=== PATIENT | male | born 1945 | race Caucasian/White ===

== ENCOUNTER → 2016-12-03 | Outpatient (CLI) | payer MEDICARE, MEDICAID ==
[~2016-12-03] MED LIST: ACET-1953 PO; ASPI-1093 PO; ATOR40TA28 PO; CARV6.2579 PO; CITA20TA17 PO; DOCU250C91 PO; DUTA.5 PO; FURO20 PO; HYDR-4031 PO; ISOS60TA62 PO; LISI10TA7 PO; METF1000 PO; NITR.3 SL; OMEG-61 PO; OMEP20CA4 PO; PHEN-853 PO; POTA8TAB4 PO; ROPI0.5T5 PO; ROSU5TAB3 PO; SITA100 PO; TAMS0.4C32 PO; TRAM50TA4 PO; TRAZ-144 PO; VITAD1000 PO; [UNRECOGNIZED DRUG - OTHER] PO
== END | disposition home or self-care (01) ==
LOC: RADPV 11:36
PROVIDERS: ATTEND Family Medicine
DX: M50.322 Other cervical disc degeneration at C5-C6 level (principal); M50.323 Other cervical disc degeneration at C6-C7 level; M47.892 Other spondylosis, cervical region; M12.88 Other specific arthropathies, not elsewhere classified, other specified site; M53.82 Other specified dorsopathies, cervical region
CPT/HCPCS: 72040

== ENCOUNTER → 2017-01-26 | Outpatient (CLI) | payer MEDICARE, MEDICAID | END | disposition home or self-care (01) | LOC: RADPV 14:55 | PROVIDERS: ATTEND Internal Medicine Critical Care Medicine | DX: I50.9 Heart failure, unspecified (principal); J98.11 Atelectasis; J98.4 Other disorders of lung; I70.0 Atherosclerosis of aorta | CPT/HCPCS: 71020 ==

== ENCOUNTER → 2017-02-18 | Outpatient (CLI) | payer MEDICARE, MEDICAID | END | disposition home or self-care (01) | LOC: RADPV 11:14 | PROVIDERS: ATTEND Family Medicine | DX: M47.815 Spondylosis without myelopathy or radiculopathy, thoracolumbar region (principal); M47.817 Spondylosis without myelopathy or radiculopathy, lumbosacral region; M43.17 Spondylolisthesis, lumbosacral region; M40.47 Postural lordosis, lumbosacral region; M51.36 Other intervertebral disc degeneration, lumbar region; M81.0 Age-related osteoporosis without current pathological fracture; I70.0 Atherosclerosis of aorta; M85.88 Other specified disorders of bone density and structure, other site; M47.812 Spondylosis without myelopathy or radiculopathy, cervical region; M50.323 Other cervical disc degeneration at C6-C7 level | CPT/HCPCS: 72040; 72100 ==

== ENCOUNTER 2017-07-23 18:26 | Inpatient (IN) | payer MEDICARE, MEDICAID ==
[~2017-07-23] VITALS: Ht 167.6 cm; Wt 143.5 kg
[~2017-07-23 18:26] MED LIST changes: -ASPI-1093 PO; +ASPI-1182 PO; -PHEN-853 PO; +PHEN-933 PO; +ROSU5TAB PO; -ROSU5TAB3 PO
[2017-07-23 18:42] LABS: GLUCOSE,POINT OF CARE 137 MG/DL (70-110)
[2017-07-23 19:11] LABS: BASOPHILS % (AUTO) 0.3 % (0.0-2.0); EOSINOPHILS % (AUTO) 2.3 % (1.0-6.0); HEMATOCRIT 41.8 % (41-53); LYMPHOCYTES # (AUTO) 2.6 K/uL (1.0-4.8); LYMPHOCYTES % (AUTO) 27.8 % (22.0-44.0); MEAN CORPUSCULAR HEMOGLOBIN 28.4 pg (26.0-34.0); MEAN CORPUSCULAR HGB CONC 33.4 G/dL (31.0-37.0); MEAN CORPUSCULAR VOLUME 85 fL (80-100); MONOCYTES # (AUTO) 0.8 K/uL (0.1-1.0); MONOCYTES % (AUTO) 8.2 % (2.0-9.0); NEUTROPHILS # (AUTO) 5.8 K/uL (1.8-7.7); NEUTROPHILS % (AUTO) 61.4 % (40.0-70.0); PLATELET COUNT (AUTO) 328 K/uL (150-450); RED BLOOD CELL COUNT(AUTO) 4.92 MIL/uL (4.50-5.90); RED CELL DISTRIBUTION WIDTH 14.8 % (11.5-14.5); WHITE BLOOD COUNT (AUTO) 9.5 K/uL (4.5-11.0)
[2017-07-23 19:19] LABS: ANION GAP 5 mmol/L (8-16); CALCIUM, TOTAL 9.3 mg/dL (8.8-10.5); CARBON DIOXIDE 29 mmol/L (22-29); CHLORIDE 100 mmol/L (98-107); CREATININE 0.81 mg/dL (0.60-1.30); GLOMERULAR FILTR. RATE CALC > 60 mL/min (>60); POTASSIUM 4.4 mmol/L (3.5-5.1); PROTHROMBIN TIME 10.7 SEC (9.4-11.6); SODIUM SERUM 134 mmol/L (136-145); UREA NITROGEN, BLOOD 18 mg/dL (7-18)
[2017-07-23 19:26] LABS: ALANINE AMINOTRANSFERASE 84 U/L (12-78); ALBUMIN 3.6 g/dL (3.4-5.0); ASPARTATE AMINOTRANSFERASE 35 U/L (15-37); BILIRUBIN,TOTAL 0.2 mg/dL (0.1-1.0); TOTAL PROTEIN, SERUM 7.4 g/dL (6.4-8.2)
[2017-07-23] MEDS ORDERED: ACETAMINOPHEN 325 MG TABLET PO PRN (20:30)
[2017-07-23] MEDS ORDERED: 0.9% SODIUM CHLORIDE 10 ML SYRINGE IVP PRN (20:30)
[2017-07-23] MEDS ORDERED: ONDANSETRON HCL 4 MG/2 ML VIAL IVP PRN (20:30)
[2017-07-23 21:36] VITALS: BP 101/58
[2017-07-23] MEDS ORDERED: NITROGLYCERIN 0.3 MG SUBLINGUAL TABLET #100 SL PRN (22:15)
[2017-07-23] MEDS ORDERED: HydrOXYzine PAMOATE 25 MG CAPSULE PO PRN (22:15)
[2017-07-23] MEDS ORDERED: ROPINIRole HCL 0.25 MG TABLET PO SCH (22:15)
[2017-07-23] MEDS ORDERED: ACETAMINOPHEN 500 MG TABLET PO PRN (22:15)
[2017-07-23] MEDS: TraZODone HCL 50 MG TABLET PO SCH (22:42)
[2017-07-23 23:26] LABS: HEMATOCRIT 39.3 % (41-53)
[2017-07-23 23:39] VITALS: BP 115/56
[2017-07-24] MEDS: TraMADol HCL 50 MG TABLET PO PRN ×5 (02:15→23:49)
[2017-07-24] MEDS ORDERED: -PHARMACY VACCINE NOTE- MISC ONE ×2 (02:45)
[2017-07-24 04:20] VITALS: BP 104/57
[2017-07-24 05:44] LABS: BASOPHILS % (AUTO) 0.6 % (0.0-2.0); HEMATOCRIT 40.6 % (41-53); HEMOGLOBIN 13.2 g/dL (13.5-17.5); LYMPHOCYTES # (AUTO) 2.7 K/uL (1.0-4.8); LYMPHOCYTES % (AUTO) 25.7 % (22.0-44.0); MEAN CORPUSCULAR HEMOGLOBIN 28.2 pg (26.0-34.0); MEAN CORPUSCULAR HGB CONC 32.6 G/dL (31.0-37.0); MEAN CORPUSCULAR VOLUME 87 fL (80-100); MONOCYTES # (AUTO) 0.8 K/uL (0.1-1.0); MONOCYTES % (AUTO) 7.7 % (2.0-9.0); NEUTROPHILS # (AUTO) 6.7 K/uL (1.8-7.7); PLATELET COUNT (AUTO) 321 K/uL (150-450); RED BLOOD CELL COUNT(AUTO) 4.69 MIL/uL (4.50-5.90); RED CELL DISTRIBUTION WIDTH 15.1 % (11.5-14.5); WHITE BLOOD COUNT (AUTO) 10.5 K/uL (4.5-11.0)
[2017-07-24 06:01] LABS: ALANINE AMINOTRANSFERASE 70 U/L (12-78); ALBUMIN 3.4 g/dL (3.4-5.0); ANION GAP 5 mmol/L (8-16); ASPARTATE AMINOTRANSFERASE 25 U/L (15-37); BILIRUBIN,TOTAL 0.2 mg/dL (0.1-1.0); CALCIUM, TOTAL 9.2 mg/dL (8.8-10.5); CARBON DIOXIDE 29 mmol/L (22-29); CHLORIDE 100 mmol/L (98-107); CREATININE 0.93 mg/dL (0.60-1.30); GLOMERULAR FILTR. RATE CALC > 60 mL/min (>60); SODIUM SERUM 134 mmol/L (136-145); TOTAL PROTEIN, SERUM 7.1 g/dL (6.4-8.2); UREA NITROGEN, BLOOD 21 mg/dL (7-18)
[2017-07-24 07:08] LABS: GLUCOSE,POINT OF CARE 132 MG/DL (70-110)
[2017-07-24 07:33] VITALS: BP 112/51
[2017-07-24] MEDS: POTASSIUM CHLORIDE 8 MEQ ER TABLET PO SCH (08:56)
[2017-07-24] MEDS: SitaGLIPtin PHOSPHATE 100 MG TABLET PO SCH (08:56)
[2017-07-24] MEDS: MetFORMIN HCL 500 MG TABLET PO SCH ×2 (08:56→17:26)
[2017-07-24] MEDS: DOCUSATE SODIUM 250 MG CAPSULE PO SCH (08:56)
[2017-07-24] MEDS: DUTASTERIDE 0.5 MG CAPSULE PO SCH (08:56)
[2017-07-24] MEDS: CITALOPRAM HYDROBROMIDE 20 MG TABLET PO SCH (08:56)
[2017-07-24] MEDS: PHENAZOPYRIDINE HCL 100 MG TABLET PO SCH ×2 (08:56→20:01)
[2017-07-24] MEDS: LISINOPRIL 20 MG TABLET PO SCH (08:57)
[2017-07-24] MEDS: ASPIRIN 81 MG EC TABLET PO SCH (08:57)
[2017-07-24] MEDS: CARVEDILOL 25 MG TABLET PO SCH ×2 (08:57→20:01)
[2017-07-24] MEDS: CHOLECALCIFEROL (VIT D3) 1,000 UNITS TABLET PO SCH (08:57)
[2017-07-24] MEDS: TAMSULOSIN HCL 0.4 MG CAPSULE PO SCH (08:57)
[2017-07-24] MEDS: OMEPRAZOLE 20 MG CAPSULE PO SCH (08:57)
[2017-07-24] MEDS: FUROSEMIDE 40 MG TABLET PO SCH (08:57)
[2017-07-24] MEDS: ISOSORBIDE MONONITRATE 60 MG ER TABLET PO SCH (08:57)
[2017-07-24] MEDS: OMEGA-3/DHA/EPA/FISH OIL 500 MG CAPSULE PO SCH (08:59)
[2017-07-24] MEDS ORDERED: ATORVASTATIN CALCIUM 40 MG TABLET PO SCH ×2 (09:00)
[2017-07-24] MEDS: VITAMIN B COMPLEX ER TABLET PO SCH (10:51)
[2017-07-24] MEDS ORDERED: LISI-662 PO (10:51)
[2017-07-24] MEDS ORDERED: FURO40 PO (10:51)
[2017-07-24] MEDS ORDERED: CARV25 PO (10:51)
[2017-07-24] MEDS ORDERED: ROSU5TAB PO (10:55)
[2017-07-24 11:00] VITALS: BP 134/68
[2017-07-24 12:33] LABS: GLUCOSE,POINT OF CARE 213 MG/DL (70-110)
[2017-07-24 15:28] VITALS: BP 117/53
[2017-07-24] MEDS ORDERED: DEXTROSE 50%-WATER 25 GM/50 ML SYRINGE IVP PRN (18:00)
[2017-07-24 18:08] LABS: GLUCOSE,POINT OF CARE 177 MG/DL (70-110)
[2017-07-24] MEDS: INSULIN ASPART 100 UNITS/ML SQ PRN ×2 (18:59→20:07)
[2017-07-24 19:10] VITALS: BP 132/68
[2017-07-24] MEDS: TraZODone HCL 50 MG TABLET PO SCH (20:01)
[2017-07-24 20:38] LABS: GLUCOSE COMMENT 1 Received Meds; GLUCOSE,POINT OF CARE 220 MG/DL (70-110)
[2017-07-24] MEDS ORDERED: ROSUVASTATIN CALCIUM 10 MG TABLET PO SCH (21:00)
[2017-07-24] MEDS ORDERED: TraZODone HCL 50 MG TABLET PO SCH (21:00)
[2017-07-24 23:25] VITALS: BP 120/60
[2017-07-25 04:00] VITALS: BP 139/59
[2017-07-25] MEDS: INSULIN ASPART 100 UNITS/ML SQ PRN (05:39)
[2017-07-25 06:18] LABS: GLUCOSE COMMENT 1 Received Meds; GLUCOSE,POINT OF CARE 152 MG/DL (70-110)
[2017-07-25 07:57] VITALS: BP 157/87
[2017-07-25] MEDS: FUROSEMIDE 40 MG TABLET PO SCH (08:52)
[2017-07-25] MEDS: CARVEDILOL 25 MG TABLET PO SCH (08:52)
[2017-07-25] MEDS: TraMADol HCL 50 MG TABLET PO PRN (08:53)
[2017-07-25] MEDS: ISOSORBIDE MONONITRATE 60 MG ER TABLET PO SCH (08:53)
[2017-07-25] MEDS: CHOLECALCIFEROL (VIT D3) 1,000 UNITS TABLET PO SCH (08:53)
[2017-07-25] MEDS: DOCUSATE SODIUM 250 MG CAPSULE PO SCH (08:53)
[2017-07-25] MEDS: LISINOPRIL 20 MG TABLET PO SCH (08:53)
[2017-07-25] MEDS: ASPIRIN 81 MG EC TABLET PO SCH (08:53)
[2017-07-25] MEDS: OMEPRAZOLE 20 MG CAPSULE PO SCH (08:53)
[2017-07-25] MEDS: POTASSIUM CHLORIDE 8 MEQ ER TABLET PO SCH (08:53)
[2017-07-25] MEDS: OMEGA-3/DHA/EPA/FISH OIL 500 MG CAPSULE PO SCH (08:55)
[2017-07-25] MEDS: VITAMIN B COMPLEX ER TABLET PO SCH (08:55)
[2017-07-25] MEDS: DUTASTERIDE 0.5 MG CAPSULE PO SCH (08:55)
[2017-07-25] MEDS: CITALOPRAM HYDROBROMIDE 20 MG TABLET PO SCH (08:56)
[2017-07-25] MEDS: PHENAZOPYRIDINE HCL 100 MG TABLET PO SCH (08:56)
[2017-07-25] MEDS: SitaGLIPtin PHOSPHATE 100 MG TABLET PO SCH (08:56)
[2017-07-25] MEDS: TAMSULOSIN HCL 0.4 MG CAPSULE PO SCH (09:04)
[2017-07-25] MEDS: MetFORMIN HCL 500 MG TABLET PO SCH (09:04)
== END 2017-07-25 10:44 | disposition home or self-care (01) | DRG 378 ==
LOC: EMS 18:28 → 6N 20:46
PROVIDERS: ADMIT Internal Medicine; ATTEND Internal Medicine
DX: K92.2 Gastrointestinal hemorrhage, unspecified (principal); Z68.43 Body mass index [BMI] 50.0-59.9, adult; E11.9 Type 2 diabetes mellitus without complications; F32.9 Major depressive disorder, single episode, unspecified; E78.00 Pure hypercholesterolemia, unspecified; N40.0 Benign prostatic hyperplasia without lower urinary tract symptoms; I10 Essential (primary) hypertension; K21.9 Gastro-esophageal reflux disease without esophagitis; Z82.49 Family history of ischemic heart disease and other diseases of the circulatory system; Z90.49 Acquired absence of other specified parts of digestive tract; E66.9 Obesity, unspecified
CPT/HCPCS: 82271; 82962; 83036; 83735; 85014; 85018; 86850; 86900; 86901; 87081; 99285

== ENCOUNTER → 2017-09-02 | Outpatient (CLI) | payer MEDICARE, MEDICAID ==
[~2017-09-02] MED LIST changes: +CARV25 PO; -CARV6.2579 PO; -FURO20 PO; +FURO40 PO; +LISI-662 PO; -LISI10TA7 PO
== END | disposition home or self-care (01) ==
LOC: RADPV 12:16
PROVIDERS: ATTEND Family Medicine
DX: M19.011 Primary osteoarthritis, right shoulder (principal)

== ENCOUNTER 2018-02-09 07:03 | Day surgery (SDC) | payer MEDICARE, MEDICAID ==
[~2018-02-09] VITALS: Ht 165.1 cm; Wt 140.9 kg
[~2018-02-09 07:03] MED LIST changes: +DICLOFENAC SODIUM 0.1% 2.5 ML OPHTHALMIC SOLUTION ONE; +MOXIFLOXACIN HCL 0.5% 3 ML OPHTHALMIC SOLUTION ONE; +RINGERS SOLUTION,LACTATED 500 ML IV ONE
[2018-02-09] MEDS ORDERED: PHENYLEPHRINE HCL 2.5% 2 ML OPHTHALMIC SOLUTION ONE (07:04)
[2018-02-09] MEDS ORDERED: LIDOCAINE HCL/PF 1% 2 ML VIAL IM ONE (07:04)
[2018-02-09] MEDS ORDERED: TROPICAMIDE 1% 2 ML OPHTHALMIC SOLUTION ONE (07:04)
[2018-02-09] MEDS ORDERED: TETRACAINE HCL VISCOUS 0.5% 5 ML OPHTHALMIC SOLUTION OD ONE (07:04)
[2018-02-09] MEDS ORDERED: HYALURONATE SODIUM 12 MG/ML 0.8 ML SYRINGE IO ONE (07:04)
[2018-02-09] MEDS ORDERED: HYALURONATE SOD/CHONDROITIN SOD 0.5 ML VIAL IO ONE (07:04)
[2018-02-09] MEDS ORDERED: FentaNYL CITRATE-PF 100 MCG/2 ML VIAL IVP ONE (07:04)
[2018-02-09] MEDS ORDERED: POVIDONE-IODINE 10% 15 ML SOLUTION UD TP ONE (07:04)
[2018-02-09] MEDS ORDERED: MIDAZOLAM HCL 2 MG/2 ML VIAL IVP ONE (07:04)
[2018-02-09] MEDS ORDERED: DEXAMETHASONE SOD PHOS 4 MG/ML VIAL IVP ONE (07:04)
[2018-02-09] MEDS ORDERED: 0.9% SODIUM CHLORIDE 10 ML SYRINGE IVP PRN (07:30)
[2018-02-09] MEDS ORDERED: RINGERS SOLUTION,LACTATED 500 ML IV ONE (07:30)
[2018-02-09] MEDS ORDERED: DICLOFENAC SODIUM 0.1% 2.5 ML OPHTHALMIC SOLUTION OS ONE (07:30)
[2018-02-09] MEDS ORDERED: MOXIFLOXACIN HCL 0.5% 3 ML OPHTHALMIC SOLUTION OS ONE (07:30)
[2018-02-09 07:58] LABS: GLUCOMETER DEV NAME(LOC) SDS 5; GLUCOSE,POINT OF CARE 144 MG/DL (70-110)
[2018-02-09] MEDS: PHENYLEPHRINE HCL 2.5% 2 ML OPHTHALMIC SOLUTION OS SCH ×2 (07:59→08:04)
[2018-02-09] MEDS: TROPICAMIDE 1% 2 ML OPHTHALMIC SOLUTION OS SCH ×2 (07:59→08:04)
[2018-02-09] MEDS ORDERED: HYDROmorphone 2 MG/ML SYRINGE IVP ONE (09:00)
[2018-02-09] MEDS ORDERED: HYDROmorphone 2 MG/ML SYRINGE ONE (09:02)
== END 2018-02-09 10:50 | disposition home or self-care (01) ==
LOC: SURGERY 07:03
PROVIDERS: ATTEND Specialist
DX: E11.36 Type 2 diabetes mellitus with diabetic cataract (principal); H25.012 Cortical age-related cataract, left eye; E78.00 Pure hypercholesterolemia, unspecified; M19.90 Unspecified osteoarthritis, unspecified site; F32.9 Major depressive disorder, single episode, unspecified; E66.9 Obesity, unspecified; G47.33 Obstructive sleep apnea (adult) (pediatric); K21.9 Gastro-esophageal reflux disease without esophagitis; I11.9 Hypertensive heart disease without heart failure; Z90.89 Acquired absence of other organs; Z79.82 Long term (current) use of aspirin; Z79.891 Long term (current) use of opiate analgesic; Z79.84 Long term (current) use of oral hypoglycemic drugs; Z79.899 Other long term (current) drug therapy; Z68.43 Body mass index [BMI] 50.0-59.9, adult
CPT/HCPCS: 65785; 66982; 82962; 93005; C1780; J1100; J1170; J2250; J3010; J3490 ×2; J7120

== ENCOUNTER 2018-04-27 05:45 | Day surgery (SDC) | payer MEDICARE, MEDICAID ==
[~2018-04-27] VITALS: Ht 167.6 cm; Wt 143.2 kg
[~2018-04-27 05:45] MED LIST changes: +PHENYLEPHRINE HCL 2.5% 2 ML OPHTHALMIC SOLUTION ONE; +REPA1 PO; -TRAZ-144 PO; +TRAZ-219 PO; +TROPICAMIDE 1% 2 ML OPHTHALMIC SOLUTION ONE; +ZOLP10TA7 PO; +[UNRECOGNIZED DRUG - CODE] PO
[2018-04-27] MEDS ORDERED: RINGERS SOLUTION,LACTATED 500 ML IV ONE (06:00)
[2018-04-27] MEDS ORDERED: MOXIFLOXACIN HCL 0.5% 3 ML OPHTHALMIC SOLUTION OD ONE (06:00)
[2018-04-27] MEDS ORDERED: DICLOFENAC SODIUM 0.1% 2.5 ML OPHTHALMIC SOLUTION OD ONE (06:00)
[2018-04-27] MEDS ORDERED: 0.9% SODIUM CHLORIDE 10 ML SYRINGE IVP PRN (06:00)
[2018-04-27] MEDS: TROPICAMIDE 1% 2 ML OPHTHALMIC SOLUTION OD SCH ×2 (06:38→06:44)
[2018-04-27] MEDS: PHENYLEPHRINE HCL 2.5% 2 ML OPHTHALMIC SOLUTION OD SCH ×2 (06:38→06:44)
[2018-04-27 06:43] LABS: GLUCOMETER DEV NAME(LOC) SDS 5; GLUCOSE,POINT OF CARE 110 MG/DL (70-110)
[2018-04-27] MEDS ORDERED: MIDAZOLAM HCL 2 MG/2 ML VIAL IVP ONE (12:00)
[2018-04-27] MEDS ORDERED: POVIDONE-IODINE 10% 15 ML SOLUTION UD ONE (20:47)
[2018-04-27] MEDS ORDERED: LIDOCAINE HCL/PF 1% 2 ML VIAL ONE (20:47)
[2018-04-27] MEDS ORDERED: DEXAMETHASONE 4 MG TABLET ONE (20:47)
[2018-04-27] MEDS ORDERED: TETRACAINE HCL VISCOUS 0.5% 0.6 ML OPHTHALMIC SOLUTION ONE (20:47)
[2018-04-27] MEDS ORDERED: HYALURONATE SODIUM 12 MG/ML 0.8 ML SYRINGE IO ONE (20:47)
[2018-04-27] MEDS ORDERED: HYALURONATE SOD/CHONDROITIN SOD 0.5 ML VIAL IO ONE (20:47)
== END 2018-04-27 09:30 | disposition home or self-care (01) ==
LOC: SURGERY 05:45
PROVIDERS: ATTEND Specialist
DX: E11.36 Type 2 diabetes mellitus with diabetic cataract (principal); H25.011 Cortical age-related cataract, right eye; E78.00 Pure hypercholesterolemia, unspecified; M19.90 Unspecified osteoarthritis, unspecified site; F32.9 Major depressive disorder, single episode, unspecified; G47.33 Obstructive sleep apnea (adult) (pediatric); E66.01 Morbid (severe) obesity due to excess calories; M81.0 Age-related osteoporosis without current pathological fracture; K21.9 Gastro-esophageal reflux disease without esophagitis; I11.0 Hypertensive heart disease with heart failure; I50.9 Heart failure, unspecified; Z68.43 Body mass index [BMI] 50.0-59.9, adult; Z79.82 Long term (current) use of aspirin; Z90.49 Acquired absence of other specified parts of digestive tract; Z98.42 Cataract extraction status, left eye; Z79.891 Long term (current) use of opiate analgesic; Z79.4 Long term (current) use of insulin; Z79.84 Long term (current) use of oral hypoglycemic drugs; Z79.899 Other long term (current) drug therapy; Z98.890 Other specified postprocedural states; Z82.49 Family history of ischemic heart disease and other diseases of the circulatory system
CPT/HCPCS: 65785; J2250; J3490; J7120; J8540

== ENCOUNTER → 2018-07-13 | Day surgery (SDC) | payer MEDICARE, MEDICAID ==
[~2018-07-13] VITALS: Ht 167.6 cm; Wt 150.0 kg
[~2018-07-13] MED LIST changes: -DICLOFENAC SODIUM 0.1% 2.5 ML OPHTHALMIC SOLUTION ONE; +LIDOCAINE/PF 2% 5 ML VIAL IM ONE; -MOXIFLOXACIN HCL 0.5% 3 ML OPHTHALMIC SOLUTION ONE; +PHEN-846 PO; -PHEN-933 PO; -PHENYLEPHRINE HCL 2.5% 2 ML OPHTHALMIC SOLUTION ONE; +PROPOFOL 1% 20 ML VIAL IVP ONE; -RINGERS SOLUTION,LACTATED 500 ML IV ONE; +SODIUM CHLORIDE 0.9% 1,000 ML IV ONE; -TROPICAMIDE 1% 2 ML OPHTHALMIC SOLUTION ONE
[2018-07-13 11:43] LABS: GLUCOMETER DEV NAME(LOC) SDS 5; GLUCOSE,POINT OF CARE 126 MG/DL (70-110)
== END | disposition home or self-care (01) ==
LOC: SURGERY 10:24
PROVIDERS: ATTEND Internal Medicine Gastroenterology
DX: D12.3 Benign neoplasm of transverse colon (principal); K64.8 Other hemorrhoids; I10 Essential (primary) hypertension; I25.10 Atherosclerotic heart disease of native coronary artery without angina pectoris; J44.9 Chronic obstructive pulmonary disease, unspecified; E11.9 Type 2 diabetes mellitus without complications; K21.9 Gastro-esophageal reflux disease without esophagitis; M19.90 Unspecified osteoarthritis, unspecified site; E78.00 Pure hypercholesterolemia, unspecified; G47.33 Obstructive sleep apnea (adult) (pediatric); Z90.49 Acquired absence of other specified parts of digestive tract; Z98.41 Cataract extraction status, right eye; Z98.42 Cataract extraction status, left eye; Z79.82 Long term (current) use of aspirin; Z79.84 Long term (current) use of oral hypoglycemic drugs; Z79.891 Long term (current) use of opiate analgesic; Z79.899 Other long term (current) drug therapy; Z98.890 Other specified postprocedural states
CPT/HCPCS: 45380; 45385; 82962; 88305; 88313; C1769; J2704; J3490; J7030

== ENCOUNTER 2019-01-21 14:37 | Inpatient (IN) | payer MEDICAID, MEDICARE ==
[~2019-01-21] VITALS: Ht 160 cm; Wt 145.3 kg
[~2019-01-21 14:37] MED LIST changes: -LIDOCAINE/PF 2% 5 ML VIAL IM ONE; -PROPOFOL 1% 20 ML VIAL IVP ONE; -SODIUM CHLORIDE 0.9% 1,000 ML IV ONE; -TRAZ-219 PO; +TRAZ-252 PO
[2019-01-21] MEDS ORDERED: IPRATROPIUM BROMIDE 0.5 MG/2.5 ML NEB SOLUTION NEB ONE (15:00)
[2019-01-21] MEDS ORDERED: MethylPREDNISolone SOD SUCC 125 MG/2 ML VIAL IVP ONE (15:00)
[2019-01-21] MEDS ORDERED: ONDANSETRON HCL 4 MG/2 ML VIAL IVP ONE (15:00)
[2019-01-21] MEDS ORDERED: ALBUTEROL SULFATE 2.5 MG/0.5 ML NEB SOLUTION NEB ONE (15:00)
[2019-01-21 15:50] LABS: BASOPHILS % (AUTO) 0.7 % (0.0-2.0); EOSINOPHILS % (AUTO) 2.3 % (1.0-6.0); HEMATOCRIT 39.1 % (41-53); HEMOGLOBIN 12.7 g/dL (13.5-17.5); LYMPHOCYTES # (AUTO) 1.4 K/uL (1.0-4.8); LYMPHOCYTES % (AUTO) 14.8 % (22.0-44.0); MEAN CORPUSCULAR HEMOGLOBIN 28.2 pg (26.0-34.0); MEAN CORPUSCULAR HGB CONC 32.4 G/dL (31.0-37.0); MEAN CORPUSCULAR VOLUME 87 fL (80-100); MONOCYTES # (AUTO) 0.6 K/uL (0.1-1.0); MONOCYTES % (AUTO) 6.5 % (2.0-9.0); NEUTROPHILS # (AUTO) 7.3 K/uL (1.8-7.7); NEUTROPHILS % (AUTO) 75.7 % (40.0-70.0); PLATELET COUNT (AUTO) 317 K/uL (150-450); RED BLOOD CELL COUNT(AUTO) 4.48 MIL/uL (4.50-5.90)
[2019-01-21 16:03] LABS: D-DIMER 0.73 mg/L FEU (0.00-0.50); PROTHROMBIN TIME 10.6 SEC (9.4-11.6)
[2019-01-21 16:06] LABS: ANION GAP 5 mmol/L (8-16); CALCIUM, TOTAL 9.5 mg/dL (8.8-10.5); CARBON DIOXIDE 31 mmol/L (22-29); CHLORIDE 99 mmol/L (98-107); CREATININE 0.84 mg/dL (0.60-1.30); GLUCOSE,RANDOM 116 mg/dL (70-110); POTASSIUM 4.1 mmol/L (3.5-5.1); SODIUM SERUM 135 mmol/L (136-145); UREA NITROGEN, BLOOD 19 mg/dL (7-18)
[2019-01-21 16:08] LABS: GLOMERULAR FILTR. RATE CALC > 60 mL/min (>60)
[2019-01-21 16:09] LABS: APPEARANCE,URINE CLEAR (CLEAR); BILIRUBIN,URINE NEGATIVE (NEGATIVE); GLUCOSE, URINE (UA) >=1000 mg/dL (NEGATIVE); KETONES,URINE NEGATIVE (NEGATIVE); LEUKOCYTE ESTERASE ,URINE NEGATIVE (NEGATIVE); NITRATE,URINE NEGATIVE (NEGATIVE); OCCULT BLOOD,URINE NEGATIVE (NEGATIVE); PROTEIN,URINE NEGATIVE (NEGATIVE); UROBILINOGEN,URINE 0.2 mg/dL (<=1.0)
[2019-01-21 16:12] LABS: ALANINE AMINOTRANSFERASE 19 U/L (12-78); ALBUMIN 3.4 g/dL (3.4-5.0); ALKALINE PHOSPHATASE 65 U/L (46-116); ASPARTATE AMINOTRANSFERASE 10 U/L (15-37); BILIRUBIN,TOTAL 0.3 mg/dL (0.1-1.0); CREATINE KINASE, TOTAL ONLY 74 U/L (39-308); TOTAL PROTEIN, SERUM 7.6 g/dL (6.4-8.2)
[2019-01-21 16:23] LABS: BACTERIA,URINE Rare /HPF (None Seen); RBC,URINE 0-2 /HPF (0-2); SQUAMOUS EPITHELIAL CELL,UR Rare /LPF (None Seen); WBC,URINE 0-2 /HPF (0-5)
[2019-01-21 16:28] LABS: B-TYPE NATRIURETIC PEPTIDE 102 pg/mL (0-100)
[2019-01-21] MEDS ORDERED: SODIUM CHLORIDE 0.9% 100 ML ONE (16:35)
[2019-01-21] MEDS ORDERED: IOVERSOL 350 MG/ML 100 ML VIAL ONE (16:35)
[2019-01-21] MEDS ORDERED: TraMADol HCL 50 MG TABLET PO ONE (17:15)
[2019-01-21 17:34] LABS: ABG A-A DIFF O2 31.4 mmHg (10-20.0); ABG BASE EXCESS 3.4 mmol/L (-2.0-3.0); ABG CARBOXYHEMOGLOBIN 1.5 % (0.0-1.5); ABG HCO3 26.6 mmol/L (22.0-26.0); ABG METHEMOGLOBIN 0.3 % (0.0-1.5); ABG OXYGEN CONTENT 16.3 mL/dL (15.0-23.0); ABG OXYGEN SATURATION 92.1 % (95.0-98.0); ABG OXYHEMOGLOBIN 90.4 % (94.0-100.0); ABG PCO2 49 mmHg (35-45); ABG PH 7.382 (7.35-7.450); ABG TOTAL HEMOGLOBIN 12.8 G/dL (12.0-18.0); SOURCE, BLOOD GAS ARTERIAL; TEMPERATURE, FAHRENHEIT, BG 97.3 FAHREN (96.0-98.6)
[2019-01-21 17:35] LABS: O2 DEVICE,BLOOD GAS ROOM AIR (ROOM AIR); SITE, BLOOD GAS RT RADIAL
[2019-01-21] MEDS ORDERED: FUROSEMIDE 40 MG/4 ML VIAL IVP ONE (18:30)
[2019-01-21] MEDS ORDERED: ONDANSETRON HCL 4 MG/2 ML VIAL IVP PRN ×2 (19:15→22:00)
[2019-01-21] MEDS ORDERED: ACETAMINOPHEN 325 MG TABLET PO PRN ×2 (19:15→22:00)
[2019-01-21] MEDS ORDERED: 0.9% SODIUM CHLORIDE 10 ML SYRINGE IVP PRN (19:15)
[2019-01-21] MEDS ORDERED: ALBUTEROL SULFATE 2.5 MG/0.5 ML NEB SOLUTION NEB PRN (22:00)
[2019-01-21] MEDS ORDERED: IPRATROPIUM BROMIDE 0.5 MG/2.5 ML NEB SOLUTION NEB PRN (22:00)
[2019-01-21] MEDS ORDERED: ZOLPIDEM TARTRATE 5 MG TABLET PO PRN (22:00)
[2019-01-21] MEDS ORDERED: BISACODYL 10 MG RECTAL RECTAL SUPPOSITORY PR PRN (22:00)
[2019-01-21] MEDS ORDERED: MAGNESIUM HYDROXIDE SUSPENSION 30 ML UDCUP PO PRN (22:00)
[2019-01-21] MEDS: HEPARIN SODIUM,PORCINE 5,000 UNITS/ML VIAL SQ SCH (23:08)
[2019-01-21] MEDS: CefTRIAXone 1 GM/DEXTROSE 50 ML IV SCH (23:08)
[2019-01-21] MEDS ORDERED: SODIUM CHLORIDE 0.9% 500 ML IV ONE (23:18)
[2019-01-22] MEDS ORDERED: ALBUTEROL SULFATE 2.5 MG/0.5 ML NEB SOLUTION NEB SCH
[2019-01-22] MEDS ORDERED: IPRATROPIUM BROMIDE 0.5 MG/2.5 ML NEB SOLUTION NEB SCH
[2019-01-22 00:59] VITALS: BP 101/48
[2019-01-22] MEDS ORDERED: 0.9% SODIUM CHLORIDE 5 ML NEB SOLUTION NEB ONE (01:06)
[2019-01-22] MEDS: ALBUTEROL SULFATE 2.5 MG/0.5 ML NEB SOLUTION NEB SCH ×4 (01:42→20:38)
[2019-01-22] MEDS: IPRATROPIUM BROMIDE 0.5 MG/2.5 ML NEB SOLUTION NEB SCH ×4 (01:43→20:37)
[2019-01-22 04:40] VITALS: BP 134/60
[2019-01-22 06:54] LABS: BASOPHILS % (AUTO) 0.1 % (0.0-2.0); EOSINOPHILS % (AUTO) 0 % (1.0-6.0); HEMATOCRIT 36.6 % (41-53); HEMOGLOBIN 11.9 g/dL (13.5-17.5); LYMPHOCYTES % (AUTO) 11.4 % (22.0-44.0); MEAN CORPUSCULAR HEMOGLOBIN 28.1 pg (26.0-34.0); MEAN CORPUSCULAR HGB CONC 32.5 G/dL (31.0-37.0); MEAN CORPUSCULAR VOLUME 87 fL (80-100); MONOCYTES # (AUTO) 0.2 K/uL (0.1-1.0); MONOCYTES % (AUTO) 1.8 % (2.0-9.0); NEUTROPHILS # (AUTO) 7.6 K/uL (1.8-7.7); PLATELET COUNT (AUTO) 325 K/uL (150-450); RED BLOOD CELL COUNT(AUTO) 4.23 MIL/uL (4.50-5.90); RED CELL DISTRIBUTION WIDTH 14.6 % (11.5-14.5)
[2019-01-22 07:23] LABS: NEUTROPHILS % (AUTO) 86.7 % (40.0-70.0)
[2019-01-22 07:30] LABS: ALANINE AMINOTRANSFERASE 17 U/L (12-78); ALBUMIN 3.5 g/dL (3.4-5.0); ALKALINE PHOSPHATASE 61 U/L (46-116); ANION GAP 10 mmol/L (8-16); ASPARTATE AMINOTRANSFERASE 12 U/L (15-37); BILIRUBIN,TOTAL 0.2 mg/dL (0.1-1.0); CALCIUM, TOTAL 9.4 mg/dL (8.8-10.5); CARBON DIOXIDE 29 mmol/L (22-29); CHLORIDE 96 mmol/L (98-107); CREATININE 1.07 mg/dL (0.60-1.30); GLUCOSE,RANDOM 158 mg/dL (70-110); POTASSIUM 4.8 mmol/L (3.5-5.1); SODIUM SERUM 135 mmol/L (136-145); TOTAL PROTEIN, SERUM 7.1 g/dL (6.4-8.2); UREA NITROGEN, BLOOD 24 mg/dL (7-18)
[2019-01-22 07:37] LABS: GLOMERULAR FILTR. RATE CALC > 60 mL/min (>60)
[2019-01-22 07:51] VITALS: BP 142/58
[2019-01-22] MEDS: HEPARIN SODIUM,PORCINE 5,000 UNITS/ML VIAL SQ SCH ×2 (08:49→16:40)
[2019-01-22] MEDS: ATORVASTATIN CALCIUM 40 MG TABLET PO SCH (08:50)
[2019-01-22] MEDS: GuaiFENesin SR 600 MG ER TABLET PO SCH ×2 (08:50→20:18)
[2019-01-22] MEDS: FUROSEMIDE 20 MG/2 ML VIAL IVP SCH ×2 (08:50→22:47)
[2019-01-22] MEDS: PANTOPRAZOLE SODIUM 40 MG DR TABLET PO SCH (08:50)
[2019-01-22] MEDS: LISINOPRIL 20 MG TABLET PO SCH (08:50)
[2019-01-22] MEDS: DOCUSATE SODIUM 100 MG CAPSULE PO SCH ×2 (08:51→20:18)
[2019-01-22] MEDS: TAMSULOSIN HCL 0.4 MG CAPSULE PO SCH (08:51)
[2019-01-22] MEDS: CHOLECALCIFEROL (VIT D3) 1,000 UNITS TABLET PO SCH (08:51)
[2019-01-22] MEDS: ASPIRIN 81 MG EC TABLET PO SCH (08:51)
[2019-01-22] MEDS: BENZONATATE 100 MG CAPSULE PO SCH ×3 (08:51→20:18)
[2019-01-22] MEDS: MetFORMIN HCL 500 MG TABLET PO SCH ×2 (08:51→18:21)
[2019-01-22] MEDS: ISOSORBIDE MONONITRATE 60 MG ER TABLET PO SCH (08:52)
[2019-01-22] MEDS: CARVEDILOL 25 MG TABLET PO SCH ×2 (08:52→20:18)
[2019-01-22] MEDS: DUTASTERIDE 0.5 MG CAPSULE PO SCH (08:52)
[2019-01-22] MEDS: PHENAZOPYRIDINE HCL 100 MG TABLET PO SCH ×2 (08:52→20:19)
[2019-01-22] MEDS: POTASSIUM CHLORIDE 8 MEQ ER TABLET PO SCH (08:53)
[2019-01-22] MEDS: SitaGLIPtin PHOSPHATE 100 MG TABLET PO SCH (08:53)
[2019-01-22] MEDS: REPAGLINIDE 1 MG TABLET PO SCH ×3 (08:54→18:21)
[2019-01-22] MEDS: CITALOPRAM HYDROBROMIDE 20 MG TABLET PO SCH (08:54)
[2019-01-22] MEDS: HYDROCODONE/ACETAMINOPHEN 5-325 MG TABLET PO PRN ×2 (09:47→22:38)
[2019-01-22 11:16] VITALS: BP 134/57
[2019-01-22] MEDS: MORPHINE SULFATE 2 MG/ML SYRINGE IVP PRN (14:03)
[2019-01-22 19:59] VITALS: BP 104/43
[2019-01-22 22:45] VITALS: BP 121/55
[2019-01-22] MEDS: CefTRIAXone 1 GM/DEXTROSE 50 ML IV SCH (22:51)
[2019-01-23] MEDS: HEPARIN SODIUM,PORCINE 5,000 UNITS/ML VIAL SQ SCH ×2 (00:04→08:30)
[2019-01-23] MEDS: MORPHINE SULFATE 2 MG/ML SYRINGE IVP PRN ×2 (00:28→06:31)
[2019-01-23 00:32] VITALS: BP 131/60
[2019-01-23 00:34] VITALS: BP 118/63
[2019-01-23 00:35] VITALS: BP 135/70
[2019-01-23] MEDS: ALBUTEROL SULFATE 2.5 MG/0.5 ML NEB SOLUTION NEB SCH ×2 (01:43→08:03)
[2019-01-23] MEDS: IPRATROPIUM BROMIDE 0.5 MG/2.5 ML NEB SOLUTION NEB SCH ×2 (01:43→08:03)
[2019-01-23 04:38] VITALS: BP 136/63
[2019-01-23] MEDS: HYDROCODONE/ACETAMINOPHEN 5-325 MG TABLET PO PRN (04:42)
[2019-01-23 05:33] LABS: BASOPHILS % (AUTO) 0.8 % (0.0-2.0); EOSINOPHILS % (AUTO) 4.5 % (1.0-6.0); HEMATOCRIT 35.2 % (41-53); HEMOGLOBIN 11.3 g/dL (13.5-17.5); LYMPHOCYTES % (AUTO) 26.4 % (22.0-44.0); MEAN CORPUSCULAR HEMOGLOBIN 28.3 pg (26.0-34.0); MEAN CORPUSCULAR HGB CONC 32.1 G/dL (31.0-37.0); MEAN CORPUSCULAR VOLUME 88 fL (80-100); MONOCYTES # (AUTO) 0.8 K/uL (0.1-1.0); MONOCYTES % (AUTO) 10.9 % (2.0-9.0); NEUTROPHILS # (AUTO) 4.3 K/uL (1.8-7.7); NEUTROPHILS % (AUTO) 57.4 % (40.0-70.0); PLATELET COUNT (AUTO) 284 K/uL (150-450); RED CELL DISTRIBUTION WIDTH 14.9 % (11.5-14.5)
[2019-01-23 06:42] LABS: ANION GAP 7 mmol/L (8-16); CARBON DIOXIDE 31 mmol/L (22-29); CHLORIDE 100 mmol/L (98-107); CREATININE 0.96 mg/dL (0.60-1.30); GLUCOSE,RANDOM 144 mg/dL (70-110); POTASSIUM 3.8 mmol/L (3.5-5.1); SODIUM SERUM 138 mmol/L (136-145); UREA NITROGEN, BLOOD 28 mg/dL (7-18)
[2019-01-23 06:52] LABS: GLOMERULAR FILTR. RATE CALC > 60 mL/min (>60)
[2019-01-23 08:07] VITALS: BP 134/61
[2019-01-23] MEDS: BENZONATATE 100 MG CAPSULE PO SCH (08:28)
[2019-01-23] MEDS: GuaiFENesin SR 600 MG ER TABLET PO SCH (08:28)
[2019-01-23] MEDS: CARVEDILOL 25 MG TABLET PO SCH (08:28)
[2019-01-23] MEDS: LISINOPRIL 20 MG TABLET PO SCH (08:28)
[2019-01-23] MEDS: MetFORMIN HCL 500 MG TABLET PO SCH (08:28)
[2019-01-23] MEDS: TAMSULOSIN HCL 0.4 MG CAPSULE PO SCH (08:28)
[2019-01-23] MEDS: ISOSORBIDE MONONITRATE 60 MG ER TABLET PO SCH (08:28)
[2019-01-23] MEDS: ATORVASTATIN CALCIUM 40 MG TABLET PO SCH (08:29)
[2019-01-23] MEDS: PANTOPRAZOLE SODIUM 40 MG DR TABLET PO SCH (08:29)
[2019-01-23] MEDS: FUROSEMIDE 20 MG/2 ML VIAL IVP SCH (08:29)
[2019-01-23] MEDS: DOCUSATE SODIUM 100 MG CAPSULE PO SCH (08:29)
[2019-01-23] MEDS: CITALOPRAM HYDROBROMIDE 20 MG TABLET PO SCH (08:29)
[2019-01-23] MEDS: ASPIRIN 81 MG EC TABLET PO SCH (08:29)
[2019-01-23] MEDS: CHOLECALCIFEROL (VIT D3) 1,000 UNITS TABLET PO SCH (08:29)
[2019-01-23] MEDS: DUTASTERIDE 0.5 MG CAPSULE PO SCH (08:30)
[2019-01-23] MEDS: SitaGLIPtin PHOSPHATE 100 MG TABLET PO SCH (08:30)
[2019-01-23] MEDS: REPAGLINIDE 1 MG TABLET PO SCH ×2 (08:34→12:35)
[2019-01-23] MEDS: PHENAZOPYRIDINE HCL 100 MG TABLET PO SCH (08:34)
[2019-01-23] MEDS: POTASSIUM CHLORIDE 8 MEQ ER TABLET PO SCH (08:45)
[2019-01-23 11:20] VITALS: BP 123/51
[2019-01-23] MEDS ORDERED: BENZ200C53 PO (11:56)
[2019-01-23] MEDS ORDERED: ALBU1.252 IH (11:59)
[2019-01-23] MEDS ORDERED: GUAI600T35 PO (12:02)
[2019-01-23] MEDS ORDERED: IPRAHFA IH (12:05)
== END 2019-01-23 13:25 | disposition home or self-care (01) | DRG 291 ==
LOC: EMS 14:38 → 5S 19:32
PROVIDERS: ADMIT Internal Medicine; ATTEND Internal Medicine
PROC: 5A09357 Assistance with Respiratory Ventilation, Less than 24 Consecutive Hours, Continuous Positive Airway Pressure (ICD-10-PCS; principal; 2019-01-22)
DX: I11.0 Hypertensive heart disease with heart failure (principal); J96.01 Acute respiratory failure with hypoxia; I50.31 Acute diastolic (congestive) heart failure; Z68.43 Body mass index [BMI] 50.0-59.9, adult; E11.9 Type 2 diabetes mellitus without complications; K21.9 Gastro-esophageal reflux disease without esophagitis; E55.9 Vitamin D deficiency, unspecified; G47.33 Obstructive sleep apnea (adult) (pediatric); E78.00 Pure hypercholesterolemia, unspecified; M19.90 Unspecified osteoarthritis, unspecified site; J44.9 Chronic obstructive pulmonary disease, unspecified; E66.01 Morbid (severe) obesity due to excess calories; E78.5 Hyperlipidemia, unspecified; Z79.82 Long term (current) use of aspirin; Z79.899 Other long term (current) drug therapy
CPT/HCPCS: 70491; 71275; 82805; 83735; 85379; 93005; 93306; 94640; 94660; 94667; 96374; 96375; G0378; J0696; J1644; J1940; J2270; J2405; J2930; J7040; J7050

== ENCOUNTER 2019-04-12 11:34 | Day surgery (SDC) | payer MEDICARE, MEDICAID ==
[~2019-04-12] VITALS: Ht 167.6 cm; Wt 104.5 kg
[~2019-04-12 11:34] MED LIST changes: -ACET-1953 PO; +ALBU1.252 IH; +BENZ200C53 PO; +GUAI600T35 PO; -HYDR-4031 PO; +IPRAHFA IH; -NITR.3 SL; +NITR0.3T12 SL; +SODIUM CHLORIDE 0.9% 1,000 ML IV ONE
[2019-04-12] MEDS ORDERED: LIDOCAINE/PF 2% 5 ML VIAL INJ ONE (12:00)
[2019-04-12] MEDS ORDERED: PROPOFOL 1% 20 ML VIAL IVP ONE (12:00)
[2019-04-12] MEDS: SODIUM CHLORIDE 0.9% 1,000 ML IV ONE (12:27)
[2019-04-12 12:34] LABS: GLUCOMETER DEV NAME(LOC) SDS.; GLUCOSE,POINT OF CARE 106 MG/DL (70-110)
== END 2019-04-12 14:50 | disposition home or self-care (01) ==
LOC: SURGERY 11:34
PROVIDERS: ATTEND Internal Medicine Gastroenterology
DX: K29.70 Gastritis, unspecified, without bleeding (principal); D64.9 Anemia, unspecified; I10 Essential (primary) hypertension; J44.9 Chronic obstructive pulmonary disease, unspecified; E11.9 Type 2 diabetes mellitus without complications; K21.9 Gastro-esophageal reflux disease without esophagitis; E78.5 Hyperlipidemia, unspecified; Z79.82 Long term (current) use of aspirin; Z79.899 Other long term (current) drug therapy; Z79.4 Long term (current) use of insulin; Z98.890 Other specified postprocedural states; Z98.42 Cataract extraction status, left eye; Z98.41 Cataract extraction status, right eye
CPT/HCPCS: 43239; 82962; C1769; J2704; J3490; J7030

== ENCOUNTER 2020-05-27 12:26 | Emergency (ER) | payer MEDICARE, MEDICAID ==
[~2020-05-27] VITALS: Ht 167.6 cm; Wt 120.0 kg
[~2020-05-27 12:26] MED LIST changes: +ASPI-1111 PO; -ASPI-1182 PO; +CHOL100018 PO; +DOCU-350 PO; -DOCU250C91 PO; -ROPI0.5T5 PO; +ROPI0.5T7 PO; -SODIUM CHLORIDE 0.9% 1,000 ML IV ONE; +TAMS-13 PO; -TAMS0.4C32 PO; -VITAD1000 PO; -ZOLP10TA7 PO; +ZOLP10TA8 PO
[2020-05-27] MEDS ORDERED: FUROSEMIDE 40 MG/4 ML VIAL IVP ONE (14:15)
[2020-05-27] MEDS ORDERED: TraMADol HCL 50 MG TABLET PO ONE (14:15)
[2020-05-27] MEDS ORDERED: ACETAMINOPHEN 500 MG TABLET PO ONE (14:15)
[2020-05-27] MEDS ORDERED: VITA-369 PO (14:28)
[2020-05-27] MEDS ORDERED: METF-960 PO (14:28)
[2020-05-27] MEDS ORDERED: ISOS60TA4 PO (14:28)
[2020-05-27] MEDS ORDERED: OMEP20 PO (14:28)
[2020-05-27] MEDS ORDERED: CHOL100018 PO (14:28)
[2020-05-27] MEDS ORDERED: KETO.5OS OU (14:38)
[2020-05-27] MEDS ORDERED: SUVO10TA PO (14:38)
[2020-05-27] MEDS ORDERED: AMLO10TA55 PO (14:38)
[2020-05-27] MEDS ORDERED: GLIP10TA9 PO (14:38)
[2020-05-27] MEDS ORDERED: OMEG100015 PO (14:38)
[2020-05-27] MEDS ORDERED: NITR0.4T52 SL (14:38)
[2020-05-27] MEDS ORDERED: FURO20TA4 PO (14:38)
[2020-05-27] MEDS ORDERED: LACT30L PO (14:38)
[2020-05-27] MEDS ORDERED: RANO10005 PO (14:38)
[2020-05-27] MEDS ORDERED: PIOG30TA70 PO (14:38)
[2020-05-27] MEDS ORDERED: EMPA10TA PO (14:38)
[2020-05-27 15:11] LABS: BASOPHILS % (AUTO) 0.5 % (0.0-2.0); EOSINOPHILS % (AUTO) 1.3 % (1.0-6.0); HEMATOCRIT 35.4 % (41-53); HEMOGLOBIN 11.3 g/dL (13.5-17.5); LYMPHOCYTES # (AUTO) 1.7 K/uL (1.0-4.8); LYMPHOCYTES % (AUTO) 25.6 % (22.0-44.0); MEAN CORPUSCULAR VOLUME 85 fL (80-100); MONOCYTES # (AUTO) 0.5 K/uL (0.1-1.0); MONOCYTES % (AUTO) 8.3 % (2.0-9.0); NEUTROPHILS # (AUTO) 4.2 K/uL (1.8-7.7); NEUTROPHILS % (AUTO) 64.3 % (40.0-70.0); PLATELET COUNT (AUTO) 281 K/uL (150-450); RED BLOOD CELL COUNT(AUTO) 4.19 MIL/uL (4.50-5.90); RED CELL DISTRIBUTION WIDTH 16.9 % (11.5-14.5)
[2020-05-27 15:13] LABS: ANION GAP 3 mmol/L (8-16); CALCIUM, TOTAL 9.5 mg/dL (8.8-10.5); CARBON DIOXIDE 33 mmol/L (22-29); CHLORIDE 97 mmol/L (98-107); CREATININE 1.11 mg/dL (0.60-1.30); GLUCOSE,RANDOM 153 mg/dL (70-110); POTASSIUM 4.2 mmol/L (3.5-5.1); SODIUM SERUM 133 mmol/L (136-145); UREA NITROGEN, BLOOD 11 mg/dL (7-18)
[2020-05-27 15:16] LABS: GLOMERULAR FILTR. RATE CALC > 60 mL/min (>60)
[2020-05-27 15:19] LABS: ALANINE AMINOTRANSFERASE 19 U/L (12-78); ALBUMIN 3.7 g/dL (3.4-5.0); ALKALINE PHOSPHATASE 56 U/L (46-116); ASPARTATE AMINOTRANSFERASE 11 U/L (15-37); BILIRUBIN,TOTAL 0.4 mg/dL (0.1-1.0); TOTAL PROTEIN, SERUM 8.3 g/dL (6.4-8.2)
[2020-05-27 15:33] LABS: B-TYPE NATRIURETIC PEPTIDE 60 pg/mL (0-100)
[2020-05-27 15:45] VITALS: BP 134/57
== END 2020-05-27 16:58 | disposition home or self-care (01) ==
LOC: EMS 12:42
DX: R60.0 Localized edema (principal); E11.65 Type 2 diabetes mellitus with hyperglycemia; Z68.41 Body mass index [BMI] 40.0-44.9, adult
CPT/HCPCS: 71045; 80053; 83880; 84484; 85025; 93005; 96374; 99285; J1940

== ENCOUNTER 2020-11-27 06:33 | Inpatient (IN) | payer MEDICARE, MEDICAID ==
[~2020-11-27] VITALS: Ht 167.6 cm; Wt 154.5 kg
[~2020-11-27 06:33] MED LIST changes: +AMLO10TA55 PO; -ASPI-1111 PO; +ASPI-1444 PO; -BENZ200C53 PO; -CHOL100018 PO; +CHOL100044 PO; -CITA20TA17 PO; +EMPA10TA PO; +FURO20TA4 PO; +GLIP10TA9 PO; -GUAI600T35 PO; -ISOS60TA62 PO; +ISOS60TA77 PO; +KETO.5OS OU; +LACT30L PO; -LISI-662 PO; +LISI-894 PO; +METF-960 PO; -METF1000 PO; -NITR0.3T12 SL; +NITR0.4T52 SL; -OMEG-61 PO; +OMEG100015 PO; +OMEP20 PO; -OMEP20CA4 PO; -PHEN-846 PO; +PIOG30TA70 PO; +RANO10005 PO; -REPA1 PO; -ROSU5TAB PO; -SITA100 PO; +SUVO10TA PO; -TRAM50TA4 PO; -TRAZ-252 PO; +VITA-369 PO; -ZOLP10TA8 PO; -[UNRECOGNIZED DRUG - OTHER] PO
[2020-11-27] MEDS ORDERED: FentaNYL CITRATE PF 100 MCG/2 ML VIAL IVP ONE ×3 (07:15→08:00)
[2020-11-27 07:27] LABS: GLUCOSE,POINT OF CARE 59 MG/DL (70-110)
[2020-11-27 07:28] LABS: GLUCOSE,POINT OF CARE 67 MG/DL (70-110)
[2020-11-27] MEDS ORDERED: MIDAZOLAM HCL 2 MG/2 ML VIAL ONE (07:53)
[2020-11-27] MEDS ORDERED: MIDAZOLAM HCL 2 MG/2 ML VIAL IVP ONE ×3 (08:00→08:45)
[2020-11-27 08:09] LABS: BASOPHILS % (AUTO) 0.3 % (0.0-2.0); EOSINOPHILS % (AUTO) 1.1 % (1.0-6.0); HEMATOCRIT 31.2 % (41-53); HEMOGLOBIN 10.3 g/dL (13.5-17.5); LYMPHOCYTES # (AUTO) 1.3 K/uL (1.0-4.8); LYMPHOCYTES % (AUTO) 12.6 % (22.0-44.0); MEAN CORPUSCULAR HEMOGLOBIN 30.1 pg (26.0-34.0); MEAN CORPUSCULAR HGB CONC 33.1 G/dL (31.0-37.0); MEAN CORPUSCULAR VOLUME 91 fL (80-100); MONOCYTES # (AUTO) 0.5 K/uL (0.1-1.0); MONOCYTES % (AUTO) 4.9 % (2.0-9.0); NEUTROPHILS # (AUTO) 8.4 K/uL (1.8-7.7); NEUTROPHILS % (AUTO) 81.1 % (40.0-70.0); PLATELET COUNT (AUTO) 251 K/uL (150-450); RED BLOOD CELL COUNT(AUTO) 3.43 MIL/uL (4.50-5.90); RED CELL DISTRIBUTION WIDTH 15.7 % (11.5-14.5)
[2020-11-27 08:20] LABS: ANION GAP 8 mmol/L (8-16); CALCIUM, TOTAL 9.4 mg/dL (8.8-10.5); CARBON DIOXIDE 30 mmol/L (22-29); CHLORIDE 97 mmol/L (98-107); CREATININE 1.04 mg/dL (0.60-1.30); GLUCOSE,RANDOM 72 mg/dL (70-110); POTASSIUM 4.4 mmol/L (3.5-5.1); SODIUM SERUM 135 mmol/L (136-145); UREA NITROGEN, BLOOD 15 mg/dL (7-18)
[2020-11-27 08:26] LABS: ALANINE AMINOTRANSFERASE 17 U/L (12-78); ALBUMIN 3.7 g/dL (3.4-5.0); ALKALINE PHOSPHATASE 51 U/L (46-116); ASPARTATE AMINOTRANSFERASE 13 U/L (15-37); BILIRUBIN,TOTAL 0.3 mg/dL (0.1-1.0); CREATINE KINASE, TOTAL ONLY 55 U/L (39-308)
[2020-11-27 08:27] LABS: GLOMERULAR FILTR. RATE CALC > 60 mL/min (>60)
[2020-11-27] MEDS ORDERED: DEXTROSE 5%-0.45% SODIUM CHL 1,000 ML IV ONE ×2 (09:00→13:45)
[2020-11-27 09:19] LABS: GLUCOSE,POINT OF CARE 81 MG/DL (70-110)
[2020-11-27] MEDS ORDERED: ACETAMINOPHEN 325 MG TABLET PO PRN ×2 (11:30→13:45)
[2020-11-27] MEDS ORDERED: 0.9% SODIUM CHLORIDE 10 ML SYRINGE IVP PRN (11:30)
[2020-11-27] MEDS ORDERED: ONDANSETRON HCL 4 MG/2 ML VIAL IVP PRN ×2 (11:30→13:45)
[2020-11-27 12:46] LABS: COVID AG,FIA SOURCE NASOPHARYNGEAL
[2020-11-27 12:50] LABS: GLUCOSE,POINT OF CARE 150 MG/DL (70-110)
[2020-11-27 13:26] VITALS: BP 133/59
[2020-11-27] MEDS ORDERED: ZOLPIDEM TARTRATE 5 MG TABLET PO PRN (13:45)
[2020-11-27] MEDS ORDERED: MAGNESIUM HYDROXIDE SUSPENSION 30 ML UDCUP PO PRN (13:45)
[2020-11-27] MEDS ORDERED: BISACODYL 10 MG RECTAL RECTAL SUPPOSITORY PR PRN (13:45)
[2020-11-27] MEDS ORDERED: DEXTROSE 50%-WATER 25 GM/50 ML SYRINGE IVP PRN (13:45)
[2020-11-27 15:28] VITALS: BP 148/73
[2020-11-27] MEDS ORDERED: -PHARMACY VACCINE NOTE- MISC ONE (15:30)
[2020-11-27] MEDS: HEPARIN SODIUM,PORCINE 5,000 UNITS/ML VIAL SQ SCH ×2 (16:00→23:21)
[2020-11-27 19:23] VITALS: BP 134/59
[2020-11-27] MEDS: MORPHINE SULFATE 2 MG/ML SYRINGE IVP PRN (20:06)
[2020-11-27] MEDS: DOCUSATE SODIUM 100 MG CAPSULE PO SCH (20:06)
[2020-11-27] MEDS: FUROSEMIDE 40 MG TABLET PO SCH (20:06)
[2020-11-27] MEDS: CARVEDILOL 25 MG TABLET PO SCH (20:06)
[2020-11-27 20:45] LABS: GLUCOMETER DEV NAME(LOC) 5S.1; GLUCOSE,POINT OF CARE 148 MG/DL (70-110)
[2020-11-27 20:45] LABS: GLUCOMETER DEV NAME(LOC) 5S.1; GLUCOSE,POINT OF CARE 135 MG/DL (70-110)
[2020-11-27 23:40] VITALS: BP 115/42
[2020-11-27] MEDS: HYDROCODONE/ACETAMINOPHEN 5-325 MG TABLET PO PRN (23:56)
[2020-11-28] MEDS: MORPHINE SULFATE 2 MG/ML SYRINGE IVP PRN ×4 (03:05→20:38)
[2020-11-28 04:05] VITALS: BP 138/76
[2020-11-28] MEDS: DOCUSATE SODIUM 100 MG CAPSULE PO SCH ×2 (08:28→20:25)
[2020-11-28] MEDS: ASPIRIN 81 MG DR TABLET PO SCH (08:28)
[2020-11-28] MEDS: TAMSULOSIN HCL 0.4 MG CAPSULE PO SCH (08:28)
[2020-11-28] MEDS: ATORVASTATIN CALCIUM 40 MG TABLET PO SCH (08:29)
[2020-11-28] MEDS: FUROSEMIDE 20 MG TABLET PO SCH (08:29)
[2020-11-28] MEDS: HEPARIN SODIUM,PORCINE 5,000 UNITS/ML VIAL SQ SCH ×3 (08:30→23:54)
[2020-11-28] MEDS: CHOLECALCIFEROL (VIT D3) 1,000 UNITS [25 MCG] TABLET PO SCH (08:30)
[2020-11-28] MEDS: LISINOPRIL 20 MG TABLET PO SCH (08:31)
[2020-11-28] MEDS: PANTOPRAZOLE SODIUM 40 MG DR TABLET PO SCH (08:31)
[2020-11-28] MEDS: CARVEDILOL 25 MG TABLET PO SCH ×2 (08:36→20:25)
[2020-11-28] MEDS: AmLODIPine BESYLATE 10 MG TABLET PO SCH (08:36)
[2020-11-28 11:25] VITALS: BP 131/51
[2020-11-28 11:35] LABS: BASOPHILS % (AUTO) 0.8 % (0.0-2.0); EOSINOPHILS % (AUTO) 1.1 % (1.0-6.0); HEMOGLOBIN 10.5 g/dL (13.5-17.5); LYMPHOCYTES # (AUTO) 1.4 K/uL (1.0-4.8); LYMPHOCYTES % (AUTO) 18.5 % (22.0-44.0); MEAN CORPUSCULAR HEMOGLOBIN 29.6 pg (26.0-34.0); MEAN CORPUSCULAR HGB CONC 32.8 G/dL (31.0-37.0); MEAN CORPUSCULAR VOLUME 90 fL (80-100); MONOCYTES # (AUTO) 0.7 K/uL (0.1-1.0); MONOCYTES % (AUTO) 8.5 % (2.0-9.0); NEUTROPHILS # (AUTO) 5.5 K/uL (1.8-7.7); NEUTROPHILS % (AUTO) 71.1 % (40.0-70.0); PLATELET COUNT (AUTO) 276 K/uL (150-450); RED BLOOD CELL COUNT(AUTO) 3.56 MIL/uL (4.50-5.90); RED CELL DISTRIBUTION WIDTH 15.8 % (11.5-14.5)
[2020-11-28 12:02] LABS: ANION GAP 9 mmol/L (8-16); CALCIUM, TOTAL 10.1 mg/dL (8.8-10.5); CARBON DIOXIDE 29 mmol/L (22-29); CHLORIDE 97 mmol/L (98-107); CREATININE 1.07 mg/dL (0.60-1.30); GLUCOSE,RANDOM 189 mg/dL (70-110); POTASSIUM 4.4 mmol/L (3.5-5.1); SODIUM SERUM 135 mmol/L (136-145); UREA NITROGEN, BLOOD 11 mg/dL (7-18)
[2020-11-28 12:04] LABS: GLOMERULAR FILTR. RATE CALC > 60 mL/min (>60)
[2020-11-28] MEDS: HYDROCODONE/ACETAMINOPHEN 5-325 MG TABLET PO PRN (12:24)
[2020-11-28 12:33] LABS: GLUCOMETER DEV NAME(LOC) 5S.2B; GLUCOSE,POINT OF CARE 167 MG/DL (70-110)
[2020-11-28 15:37] VITALS: BP 148/75
[2020-11-28] MEDS: MetFORMIN HCL 500 MG TABLET PO SCH (17:57)
[2020-11-28 19:19] VITALS: BP 129/54
[2020-11-28] MEDS: FUROSEMIDE 40 MG TABLET PO SCH (20:24)
[2020-11-28 23:09] LABS: GLUCOMETER DEV NAME(LOC) 5S.2B; GLUCOSE,POINT OF CARE 186 MG/DL (70-110)
[2020-11-28 23:53] VITALS: BP 140/72
[2020-11-29] MEDS: MORPHINE SULFATE 2 MG/ML SYRINGE IVP PRN ×2 (01:55→10:59)
[2020-11-29 04:52] VITALS: BP 131/54
[2020-11-29 05:57] LABS: GLUCOMETER DEV NAME(LOC) 5N.3; GLUCOSE,POINT OF CARE 147 MG/DL (70-110)
[2020-11-29 05:58] LABS: GLUCOMETER DEV NAME(LOC) 5N.3; GLUCOSE,POINT OF CARE 173 MG/DL (70-110)
[2020-11-29 06:37] LABS: BASOPHILS % (AUTO) 1.1 % (0.0-2.0); EOSINOPHILS % (AUTO) 2.3 % (1.0-6.0); HEMATOCRIT 29.7 % (41-53); HEMOGLOBIN 9.8 g/dL (13.5-17.5); LYMPHOCYTES # (AUTO) 1.7 K/uL (1.0-4.8); LYMPHOCYTES % (AUTO) 27.6 % (22.0-44.0); MEAN CORPUSCULAR HEMOGLOBIN 29.8 pg (26.0-34.0); MEAN CORPUSCULAR VOLUME 90 fL (80-100); MONOCYTES # (AUTO) 0.6 K/uL (0.1-1.0); MONOCYTES % (AUTO) 9.9 % (2.0-9.0); NEUTROPHILS # (AUTO) 3.7 K/uL (1.8-7.7); NEUTROPHILS % (AUTO) 59.1 % (40.0-70.0); PLATELET COUNT (AUTO) 265 K/uL (150-450); RED BLOOD CELL COUNT(AUTO) 3.28 MIL/uL (4.50-5.90)
[2020-11-29 07:50] VITALS: BP 119/79
[2020-11-29] MEDS: ATORVASTATIN CALCIUM 40 MG TABLET PO SCH (08:20)
[2020-11-29] MEDS: HEPARIN SODIUM,PORCINE 5,000 UNITS/ML VIAL SQ SCH ×2 (08:20→15:35)
[2020-11-29] MEDS: TAMSULOSIN HCL 0.4 MG CAPSULE PO SCH (08:20)
[2020-11-29] MEDS: CARVEDILOL 25 MG TABLET PO SCH (08:21)
[2020-11-29] MEDS: ASPIRIN 81 MG DR TABLET PO SCH (08:21)
[2020-11-29] MEDS: PANTOPRAZOLE SODIUM 40 MG DR TABLET PO SCH (08:21)
[2020-11-29] MEDS: MetFORMIN HCL 500 MG TABLET PO SCH (08:21)
[2020-11-29] MEDS: AmLODIPine BESYLATE 10 MG TABLET PO SCH (08:21)
[2020-11-29] MEDS: LISINOPRIL 20 MG TABLET PO SCH (08:21)
[2020-11-29] MEDS: DOCUSATE SODIUM 100 MG CAPSULE PO SCH (08:22)
[2020-11-29] MEDS: FUROSEMIDE 20 MG TABLET PO SCH (08:26)
[2020-11-29] MEDS: CHOLECALCIFEROL (VIT D3) 1,000 UNITS [25 MCG] TABLET PO SCH (08:26)
[2020-11-29] MEDS: HYDROCODONE/ACETAMINOPHEN 5-325 MG TABLET PO PRN ×2 (08:26→15:35)
[2020-11-29 11:49] VITALS: BP 130/64
[2020-11-29 15:33] VITALS: BP 130/47
[2020-11-29 20:40] LABS: GLUCOMETER DEV NAME(LOC) 5N.3; GLUCOSE,POINT OF CARE 152 MG/DL (70-110)
[2020-11-30 07:26] LABS: GLUCOMETER DEV NAME(LOC) 5S.2B; GLUCOSE,POINT OF CARE 162 MG/DL (70-110)
== END 2020-11-29 18:00 | disposition left against medical advice (07) | DRG 637 ==
LOC: EMS 06:34 → 5S 12:05
PROVIDERS: ADMIT Internal Medicine; ATTEND Internal Medicine
DX: E11.649 Type 2 diabetes mellitus with hypoglycemia without coma (principal); G93.41 Metabolic encephalopathy; E87.1 Hypo-osmolality and hyponatremia; Z68.43 Body mass index [BMI] 50.0-59.9, adult; I11.0 Hypertensive heart disease with heart failure; I50.9 Heart failure, unspecified; S43.005A Unspecified dislocation of left shoulder joint, initial encounter; E78.5 Hyperlipidemia, unspecified; E66.01 Morbid (severe) obesity due to excess calories; G47.33 Obstructive sleep apnea (adult) (pediatric); D64.9 Anemia, unspecified; J45.909 Unspecified asthma, uncomplicated; E78.00 Pure hypercholesterolemia, unspecified; Z20.822 Contact with and (suspected) exposure to COVID-19; S43.015A Anterior dislocation of left humerus, initial encounter; W18.39XA Other fall on same level, initial encounter; Y93.89 Activity, other specified; Y92.89 Other specified places as the place of occurrence of the external cause; Y99.8 Other external cause status; Z53.29 Procedure and treatment not carried out because of patient's decision for other reasons
CPT/HCPCS: 82948; 83036; 87426; 93005; 94660; 97162; 97165; 97535; 99285; J1644; J2250; J2270; J3010; 36415-L1; 36415-TC; 71045-TC

== ENCOUNTER → 2021-06-10 | Outpatient (CLI) | payer MEDICARE, MEDICAID ==
[~2021-06-10] VITALS: Ht 167.6 cm; Wt 139.9 kg
[~2021-06-10] MED LIST changes: +CHOL-35 PO; -CHOL100044 PO; -GLIP10TA9 PO; +METF-1211 PO; -METF-960 PO; -PIOG30TA70 PO; -POTA8TAB4 PO; +SLOWK8 PO
[2021-06-10 15:30] VITALS: BP 139/58
== END | disposition home or self-care (01) ==
LOC: SRCNTR 14:39
PROVIDERS: ATTEND Internal Medicine
DX: G47.33 Obstructive sleep apnea (adult) (pediatric) (principal); E11.9 Type 2 diabetes mellitus without complications; I10 Essential (primary) hypertension; E16.2 Hypoglycemia, unspecified
CPT/HCPCS: G0463; Z7500

== ENCOUNTER → 2021-11-21 | Outpatient (CLI) | payer MEDICARE, MEDICAID ==
[2021-11-21 11:47] VITALS: BP 134/45
== END | disposition home or self-care (01) ==
LOC: SRCNTR 11:24
PROVIDERS: ATTEND Internal Medicine
DX: I10 Essential (primary) hypertension (principal); E11.9 Type 2 diabetes mellitus without complications; E78.5 Hyperlipidemia, unspecified; G47.33 Obstructive sleep apnea (adult) (pediatric); I25.10 Atherosclerotic heart disease of native coronary artery without angina pectoris; J30.9 Allergic rhinitis, unspecified; E66.01 Morbid (severe) obesity due to excess calories
CPT/HCPCS: G0463; Z7500

== ENCOUNTER → 2022-01-02 | Outpatient (CLI) | payer MEDICARE, MEDICAID ==
[~2022-01-02] MED LIST changes: -CHOL-35 PO; +CHOL25TA4 PO; -DOCU-350 PO; +DOCU250C99 PO; +LACT10SO10 PO; -LACT30L PO
[2022-01-02 12:14] VITALS: BP 120/53
== END | disposition home or self-care (01) ==
LOC: SRCNTR 12:06
PROVIDERS: ATTEND Internal Medicine
DX: E11.9 Type 2 diabetes mellitus without complications (principal); G47.33 Obstructive sleep apnea (adult) (pediatric); I25.10 Atherosclerotic heart disease of native coronary artery without angina pectoris; E78.5 Hyperlipidemia, unspecified; I10 Essential (primary) hypertension; E66.01 Morbid (severe) obesity due to excess calories; J30.9 Allergic rhinitis, unspecified; J44.9 Chronic obstructive pulmonary disease, unspecified
CPT/HCPCS: G0463; Z7500

== ENCOUNTER 2022-01-29 11:53 | Day surgery (SDC) | payer MEDICARE, MEDICAID ==
[2022-01-28 12:10] LABS: COVID AG,FIA SOURCE NASOPHARYNGEAL
[~2022-01-29] VITALS: Ht 167.6 cm; Wt 106.8 kg
[~2022-01-29 11:53] MED LIST changes: +DOCU-350 PO; -DOCU250C99 PO; +SODIUM CHLORIDE 0.9% 1,000 ML IV ONE; +SODIUM CHLORIDE 0.9% 1,000 ML ONE
[2022-01-29] MEDS ORDERED: LIDOCAINE/PF 2% 5 ML VIAL IM ONE (11:54)
[2022-01-29] MEDS ORDERED: PROPOFOL 1% 20 ML VIAL IVP ONE (11:54)
[2022-01-29 16:32] LABS: GLUCOMETER DEV NAME(LOC) SDS.; GLUCOSE,POINT OF CARE 87 MG/DL (70-110)
[2022-01-29 16:39] LABS: GLUCOMETER DEV NAME(LOC) SDS.; GLUCOSE,POINT OF CARE 87 MG/DL (70-110)
== END 2022-01-29 15:45 | disposition home or self-care (01) ==
LOC: SURGERY 11:53
PROVIDERS: ATTEND Internal Medicine Gastroenterology
DX: D50.9 Iron deficiency anemia, unspecified (principal); K29.50 Unspecified chronic gastritis without bleeding; I10 Essential (primary) hypertension; E78.5 Hyperlipidemia, unspecified; E11.9 Type 2 diabetes mellitus without complications; K21.9 Gastro-esophageal reflux disease without esophagitis; E78.00 Pure hypercholesterolemia, unspecified; J44.9 Chronic obstructive pulmonary disease, unspecified; Z79.899 Other long term (current) drug therapy; Z88.8 Allergy status to other drugs, medicaments and biological substances; Z98.890 Other specified postprocedural states
CPT/HCPCS: 43239; 82962; 87426; 93005; C9803; J2704; J3490; J7030; 88305; 88312; 88313

== ENCOUNTER → 2022-04-13 | Outpatient (CLI) | payer MEDICARE, MEDICAID ==
[~2022-04-13] MED LIST changes: -EMPA10TA PO; +EMPA10TA3 PO; -SODIUM CHLORIDE 0.9% 1,000 ML IV ONE; -SODIUM CHLORIDE 0.9% 1,000 ML ONE
[2022-04-13 12:07] VITALS: BP 116/46
== END | disposition home or self-care (01) ==
LOC: SRCNTR 11:53
PROVIDERS: ATTEND Internal Medicine
DX: I10 Essential (primary) hypertension (principal); Z09 Encounter for follow-up examination after completed treatment for conditions other than malignant neoplasm; E11.9 Type 2 diabetes mellitus without complications; E78.5 Hyperlipidemia, unspecified; E66.01 Morbid (severe) obesity due to excess calories; I25.10 Atherosclerotic heart disease of native coronary artery without angina pectoris; G47.33 Obstructive sleep apnea (adult) (pediatric); J30.9 Allergic rhinitis, unspecified; R06.00 Dyspnea, unspecified
CPT/HCPCS: G0463; Z7500

== ENCOUNTER → 2022-11-03 | Outpatient (CLI) | payer MEDICARE, MEDICAID ==
[~2022-11-03] MED LIST changes: +KETO-108 OU; -KETO.5OS OU
[2022-11-03 10:10] VITALS: BP 146/64
== END | disposition home or self-care (01) ==
LOC: SRCNTR 09:54
PROVIDERS: ATTEND Internal Medicine
DX: J45.909 Unspecified asthma, uncomplicated (principal); I10 Essential (primary) hypertension; E11.9 Type 2 diabetes mellitus without complications
CPT/HCPCS: G0463; Z7500

== ENCOUNTER → 2023-03-01 | Outpatient (CLI) | payer MEDICARE, MEDICAID ==
[~2023-03-01] VITALS: Ht 167.6 cm; Wt 127.0 kg
[2023-03-01 10:45] VITALS: BP 125/53; PULSE 61; RESP 16; TEMP 97.9; O2SAT 97
== END | disposition home or self-care (01) ==
LOC: SRCNTR 10:24
PROVIDERS: ATTEND Internal Medicine
DX: Z09 Encounter for follow-up examination after completed treatment for conditions other than malignant neoplasm (principal); G47.33 Obstructive sleep apnea (adult) (pediatric); J44.9 Chronic obstructive pulmonary disease, unspecified; I10 Essential (primary) hypertension; E11.9 Type 2 diabetes mellitus without complications; E16.2 Hypoglycemia, unspecified; G93.40 Encephalopathy, unspecified
CPT/HCPCS: G0463